=== PATIENT | female | born 1990 | race African-American/Black ===

== ENCOUNTER 2020-04-21 12:17 | Emergency (ER) | payer MEDICAID ==
[~2020-04-21] VITALS: Ht 162.6 cm; Wt 69.9 kg
[2020-04-21] MEDS ORDERED: Methocarbamol 750mg tab ORAL ONE (13:30)
[2020-04-21] MEDS ORDERED: Ketorolac 30mg Inj IM ONE (13:30)
--- NOTE | 2020-04-21 14:02 | Emergency Room Report ---
History of Present Illness General Chief Complaint: Lower Extremity Injury Source: Patient Present Illness HPI 29-year-old female seizures with recent injury to left ankle and lower back x1 week already been seen in a different hospital and x-ray of lower back and ankle showed sprain no fracture here reporting the pain has not improved. Patient reports that she never picked up the prescription of Flexeril and ibuprofen by the other hospital as ankle it is really difficult for me to walk and go to the pharmacy." However patient decided to come to the ED today for more pain medication. Denies any fall or injury. Reports that she did not want to follow-up with primary doctor as primary doctor is in [place]. Denies tingling or numbness. Patient does not have any immobilizer on. Has not taken medication for symptom relief. Is neurovascularly intact. Denies chest pain, shortness of breath, headache and dizziness. 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 COVID-19 Screening: Negative COVID-19 COVID-19 Testing Source: [employer] Patient History Past Medical History: see triage record Past Surgical History: none Pertinent Family History: none Last Menstrual Period: 03/16 Now: No Immunizations: UTD Reviewed Nursing Documentation: PMH: Agreed; PSxH: Agreed Nursing Documentation-PMH Past Medical History: No Stated History Review of Systems All Other Systems: negative except mentioned in HPI Physical Exam Vital Signs Date Time Temp Pulse Resp B/P (MAP) Pulse Ox O2 Delivery O2 Flow Rate FiO2 04/21/20 12:33 98.8 95 14 121/81 (94) 98 Room Air Sp02 EP Interpretation: reviewed, normal General Appearance: no apparent distress, alert, GCS 15, non-toxic Head: normocephalic, atraumatic Eyes: bilateral eye normal inspection, bilateral eye PERRL ENT: hearing grossly normal, normal pharynx, no angioedema, normal voice Neck: full range of motion, supple/symm/no masses Respiratory: chest non-tender, lungs clear, normal breath sounds, speaking full sentences Cardiovascular #1: regular rate, rhythm, no edema Cardiovascular #2: 2+ dorsalis pedis (R), 2+ dorsalis pedis (L) Gastrointestinal: soft Genitourinary: no CVA tenderness Musculoskeletal: back normal, no calf tenderness, pelvis stable, non-tender, swelling - Left lateral malleolus Neurologic: alert, motor strength/tone normal, oriented x3, sensory intact, r esponsive, speech normal Psychiatric: judgement/insight normal, memory normal, mood/affect normal, no suicidal/homicidal ideation Skin: no rash Lymphatic: no adenopathy Procedures Splinting Splinting : Consent: Verbal Location: Left ankle Splint: poserior short Pre-Proc Neuro Vasc Exam: normal Post-Proc Neuro Vasc Exam: normal Patient Tolerated: Well Complications: None Progress Crutches were provided Medical Decision Making PA Attestation All my diagnosis and treatment plans were reviewed ad discussed with my supervising physician Dr. Morel Diagnostic Impression: Primary Impression: Ankle sprain ER Course 29-year-old female seizures with recent injury to left ankle and lower back x1 week already been seen in a different hospital and x-ray of lower back and ankle showed sprain no fracture here reporting the pain has not improved. Patient reports that she never picked up the prescription of Flexeril and ibuprofen by the other hospital as ankle it is really difficult for me to walk and go to the pharmacy." However patient decided to come to the ED today for more pain medication. Denies any fall or injury. Reports that she did not want to follow-up with primary doctor as primary doctor is in [place]. Denies tingling or numbness. Patient does not have any immobilizer on. Has not taken medication for symptom relief. Is neurovascularly intact. Denies chest pain, shortness of breath, headache and dizziness. Ddx considered but are not limited to: ankle sprain, ankle strain, ankle fracture, ankle contusion, Achilles tendon rupture Vital signs: are WNL, pt. is afebrile H&PE are most consistent with: Left ankle sprain ORDERS: Left ankle x-ray, ED INTERVENTIONS: Toradol IM, Robaxin p.o. Patient was provided with crutches and posterior short leg splint was applied, advised patient to go to the pharmacy and tack picker the prescription scription that was given by the other hospital. At this time no further evaluation needed, possibility of tendon injury suspected however patient to follow-up with orthopedist. Proper management was done by applying splint and given crutches. Patient is in anti-inflammatory as well as muscle relaxant. At this time I do not believe that any stronger pain medication is needed specially that the patient has not yet tried to take any medication that was given to her 1 week ago. Advised patient to return to the emergency room if worsening symptoms. DISCHARGE: At this time pt. is stable for d/c to home. Will provide printed patient care instructions, and any necessary prescriptions. Care plan and follow up instructions have been discussed with the patient prior to discharge. Other X-Ray Diagnostic Results Other X-Ray Diagnostic Results : X-Ray ordered: Left ankle # of Views/Limited Vs Complete: 3 View Indication: Pain EP Interpretation: Yes ANGEL Xray: Interpretation reviewed, by supervising MD, and agrees with findings. Interpretation: no dislocation, no fractures Impression: No acute disease Electronically Signed by: Marcelo Hill PA-C Last Vital Signs Date Time Temp Pulse Resp B/P (MAP) Pulse Ox O2 Delivery O2 Flow Rate FiO2 04/21/20 12:33 98.8 95 14 121/81 (94) 98 Room Air Disposition: HOME, SELF-CARE Condition: Stable Scripts No Active Prescriptions or Reported Meds Patient Instructions: Ankle Sprain Additional Instructions: Take medication as directed, follow-up with orthopedist, tack picker your prescription from the pharmacy, if worsening symptoms come to the emergency room Marcelo Johnston Apr 21, 2020 14:02
--- NOTE | 2020-04-21 14:23 | NUR ---
ED Nurse Note: Pt walked in from home. She states that she was walking as fell spraining her ankle. She is tearful in assement. Co of pain 9/10. She states that she is unable to provide any weight bearing on her ankle. Vital signs are stable as documetned. Breathing is non labored and no signs of distress is noted. axox4 and is speaking in complete sentances. There are both pedal and dorsalis pulses present on palpitation.
--- NOTE | 2020-04-21 14:26 | NUR ---
ED Nurse Note: Xray of ankle taken and outdoor emergency care technician placed splint on ankle.
[2020-04-21 14:30] VITALS: BP 112/80
--- NOTE | 2020-04-21 14:30 | NUR ---
ER DISCHARGE NOTE: Patient is cleared to be discharged per ERMD, pt is aox4, on room air, with stable vital signs. pt was given dc and prescription instructions, pt was able to verbalize understanding, pt id band and iv site removed without complications. pt is able to ambulate with steady gait. pt took all belongings.
--- NOTE | 2020-04-21 16:47 | Diagnostic Imaging Report ---
Indication: Pain, trauma Technique: 3 views of the ankle Comparison: none Findings: No acute fractures. No dislocations. The joint spaces are preserved. Impression: Negative
== END 2020-04-21 14:30 | disposition home or self-care (01) ==
LOC: EMR 12:30
DX: S93.402A Sprain of unspecified ligament of left ankle, initial encounter (principal); X58.XXXA Exposure to other specified factors, initial encounter; Y92.9 Unspecified place or not applicable; Z88.2 Allergy status to sulfonamides; M54.5 Low back pain
CPT/HCPCS: 29515; 73610; 96372; J1885; Z7502; 99283